=== PATIENT | female | born 1995 | race African-American/Black ===

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

== ENCOUNTER 2017-01-14 11:21 | Emergency (ER) | payer BC ==
[~2017-01-14] VITALS: Ht 157.5 cm; Wt 60.0 kg
[2017-01-14 11:22] VITALS: BP 123/68; PULSE 88; RESP 14; TEMP 98.4; O2SAT 100
[2017-01-14] MEDS ORDERED: IOHEXOL 350 MG/ML 10 ML VIAL (for RAD DIAG) IVCONTRAST ONE (11:22)
[2017-01-14] MEDS ORDERED: SODIUM CHLOR 0.9% 1000 ML INJ 1,000 ML IV SCH (13:49)
[2017-01-14] MEDS ORDERED: ONDANSETRON HCL 4 MG/2 ML VIAL IVP ONE (14:00)
--- NOTE | 2017-01-14 14:22 | PD ---
HPI Chief Complaint: GI Complaint Time Seen by Provider: 13:42 Travel History International Travel<30 days: No Contact w/Intl Traveler<30days: No Traveled to known affect area: No History of Present Illness HPI 22-year-old female that presents to the ED for evaluation of RLQ pain. Patient has had this for 1 week and a half. Thought it might be her menses, but has not come. LMP was normal last month. Unknown if . Mild vaginal discharge per patient. Pain is 10/10. No surgeries. No chest pain or SOB. yesterday pain became more severe, with nausea. Pain does not radiate. No BM or urinary symptoms. No allergies to meds. Hasn't taken anything for this. No other medical issues reported. PFSH Past Medical History Medical History: Denies Significant Hx Diminished Hearing: No Influenza Vaccination: No ?: Not LMP: 12/21/16 Ovarian Cysts: Yes Past Surgical History Surgical History: No Previous Surgery Social History Alcohol Use: No (denies) Tobacco Use: No (denies) Substance Use: No Allergies-Medications (Allergen,Severity, Reaction): Coded Allergies: No Known Allergies (Unverified , 01/14/17) Reported Meds & Prescriptions Reported Meds & Active Scripts Active Zofran (Ondansetron HCl) 4 Mg Tab 4 Mg PO Q6HR PRN Tramadol (Tramadol HCl) 50 Mg Tab 50 Mg PO Q6H PRN Diclofenac Sodium DR (Diclofenac Sodium) 75 Mg Tabdr 75 Mg PO BID PRN Doxycycline Hyclate 100 Mg Cap 100 Mg PO BID 10 Days Review of Systems Except as stated in HPI: all other systems reviewed are Neg Physical Exam Narrative GENERAL: SKIN: Warm and dry. HEAD: Atraumatic. Normocephalic. EYES: Pupils equal and round. No scleral icterus. No injection or drainage. ENT: No nasal bleeding or discharge. Mucous membranes pink and moist. Tongue is midline. No uvula deviation. NECK: Trachea midline. No JVD. CARDIOVASCULAR: Regular rate and rhythm. No murmurs, S3, S4. RESPIRATORY: No accessory muscle use. Clear to auscultation. Breath sounds equal bilaterally. GASTROINTESTINAL: Abdomen soft, RLQ pain with deep palpation, nondistended. Hepatic and splenic margins not palpable. Pelvic exam: Done with female nurse present. Patient does have yellowish white discharge coming from the vagina. No murmurs. No adnexal tenderness. No cervical tenderness MUSCULOSKELETAL: Extremities without clubbing, cyanosis, or edema. No obvious deformities. Full range of motion of the upper and lower extremities bilaterally. 2+ pulses bilaterally. NEUROLOGICAL: Awake and alert. No obvious cranial nerve deficits. Motor grossly within normal limits. Five out of 5 muscle strength in the arms and legs. Normal speech. PSYCHIATRIC: Appropriate mood and affect; insight and judgment normal. Data Data Last Documented VS Vital Signs Date Time Temp Pulse Resp B/P (MAP) Pulse Ox O2 Delivery O2 Flow Rate FiO2 01/14/17 19:41 01/14/17 13:57 18 01/14/17 11:22 98.4 88 100 Orders Orders Complete Blood Count With Diff (01/14/17 13:49) Comprehensive Metabolic Panel (01/14/17 13:49) Lipase (01/14/17 13:49) Urinalysis - C+S If Indicated (01/14/17 13:49) Ct Abd/Pel W Iv Contrast(Rout) (01/14/17 13:49) Iv Access Insert/Monitor (01/14/17 13:49) Ondansetron Inj (Zofran Inj) (01/14/17 14:00) Sodium Chlor 0.9% 1000 Ml Inj (Ns 1000 M (01/14/17 13:49) Ed Urine Pregnancytest Poc (01/14/17 13:49) Gc And Chlamydia Pcr (01/14/17 13:49) Wet Prep Profile (01/14/17 13:49) Morphine Inj (Morphine Inj) (01/14/17 14:30) Azithromycin Powd Pack (Zithromax Powd P (01/14/17 15:45) Ceftriaxone Inj (Rocephin Inj) (01/14/17 15:45) Lidocaine 1% Inj (50 Ml) (Xylocaine 1% I (01/14/17 15:45) Iohexol 350 Inj (Omnipaque 350 Inj) (01/14/17 11:22) Ketorolac Inj (Toradol Inj) (01/14/17 16:30) Us Pelvis Comp W Doppler (01/14/17 ) Morphine Inj (Morphine Inj) (01/14/17 17:45) Ondansetron Inj (Zofran Inj) (01/14/17 17:45) Labs Laboratory Tests Test 01/14/17 14:15 01/14/17 15:08 White Blood Count 5.9 TH/MM3 Red Blood Count 4.96 MIL/MM3 Hemoglobin 14.3 GM/DL Hematocrit 43.8 % Mean Corpuscular Volume 88.3 FL Mean Corpuscular Hemoglobin 28.8 PG Mean Corpuscular Hemoglobin Concent 32.6 % Red Cell Distribution Width 13.2 % Platelet Count 249 TH/MM3 Mean Platelet Volume 9.4 FL Neutrophils (%) (Auto) 79.5 % Lymphocytes (%) (Auto) 14.8 % Monocytes (%) (Auto) 3.5 % Eosinophils (%) (Auto) 1.2 % Basophils (%) (Auto) 1.0 % Neutrophils # (Auto) 4.7 TH/MM3 Lymphocytes # (Auto) 0.9 TH/MM3 Monocytes # (Auto) 0.2 TH/MM3 Eosinophils # (Auto) 0.1 TH/MM3 Basophils # (Auto) 0.1 TH/MM3 CBC Comment DIFF FINAL Differential Comment Urine Color YELLOW Urine Turbidity CLEAR Urine pH 6.0 Urine Specific [place] 1.032 Urine Protein TRACE mg/dL Urine Glucose (UA) 300 mg/dL Urine Ketones 80 mg/dL Urine Occult Blood NEG Urine Nitrite NEG Urine Bilirubin NEG Urine Urobilinogen LESS THAN 2.0 MG/DL Urine Leukocyte Esterase NEG Urine RBC 2 /hpf Urine WBC 1 /hpf Urine Squamous Epithelial Cells 3 /hpf Urine Mucus FEW /lpf Microscopic Urinalysis Comment CULT NOT INDICATED Blood Urea Nitrogen 12 MG/DL Creatinine 0.67 MG/DL Random Glucose 115 MG/DL Total Protein 7.5 GM/DL Albumin 3.7 GM/DL Calcium Level 8.5 MG/DL Alkaline Phosphatase 109 U/L Aspartate Amino Transf (AST/SGOT) 1061 U/L Alanine Aminotransferase (ALT/SGPT) 931 U/L Total Bilirubin 1.8 MG/DL Sodium Level 137 MEQ/L Potassium Level 3.8 MEQ/L Chloride Level 105 MEQ/L Carbon Dioxide Level 22.8 MEQ/L Anion Gap 9 MEQ/L Estimat Glomerular Filtration Rate 136 ML/MIN Lipase 163 U/L Clue Cells (Wet Prep) NONE SEEN Vaginal Trichomonas (Wet Prep) NONE SEEN Vaginal Yeast (Wet Prep) NONE SEEN Chlamydia trachomatis DNA (PCR) NOT DETECTED Neisseria gonorrhoeae DNA (PCR) NOT DETECTED [facility] Medical Decision Making Medical Screen Exam Complete: Yes Emergency Medical Condition: Yes Medical Record Reviewed: Yes Interpretation(s) CBC & BMP Diagram 01/14/17 14:15 Total Protein 7.5, Albumin 3.7, Calcium Level 8.5, Alkaline Phosphatase 109, Aspartate Amino Transf (AST/SGOT) 1061 H, Alanine Aminotransferase (ALT/SGPT) 931 H, Total Bilirubin 1.8 H UA negative Wet prep negative Last Impressions Abdomen/Pelvis CT 01/14/17 1349 Signed Impressions: Service Date/Time: Saturday, January 14, 2017 15:25 - CONCLUSION: 1. Normal appendix. 2. 2.6 x 2.0 cm left adnexal cystic lesion, likely ovarian in etiology. Generally, < 3 cm ovarian cysts do not require further imaging. If further imaging is clinically indicated, ultrasound examination may be performed for further evaluation. 3. Subcentimeter hypodense renal and hepatic lesions which are too small to fully characterize but statistically likely reflect cysts. Azam Nava MD US negative for acute disease other than ovarian cyst Differential Diagnosis Appendicitis versus ovarian pain versus UTI versus vaginitis versus abdominal pain versus kidney stone versus versus ectopic Narrative Course 22-year-old female that presents to the ED for evaluation of right lower quadrant pain. Patient was properly examined and was found to have signs and symptoms of unclear etiology. This time patient does appear to have right lower quadrant pain. Never had surgeries. Labs and imaging were ordered. Concern for appendicitis although less likely as patient has had symptoms for a week but she does have reproducible pain in the right lower quadrant with deep palpation. Labs and imaging show what appears to be elevated LFTs as well as some cystic lesions on the liver and kidney. Also cyst to the left ovary. No appendicitis noted. Wet prep was negative. At this time concerning for PID. Patient was given IM dose of ceftriaxone as well as azithromycin here and patient will be discharged home with prescription for doxycycline and diclofenac sodium. Told to have close follow-up with PCP. She was told the results of the labs and the need for further evaluation for the elevated LFTs. Possibly likely secondary to the vaginal infection. All relevant findings as well as physical exam were discussed with my attending Dr. Brito who recommends outpatient treatment and GI follow up. Patient was told this and agrees with plan. See ED for worsening symptoms. Follow with PCP. Before patient was discharged she was complaining of a lot more pain. My attending recommended ultrasound to make sure we are not missing a torsion. Ultrasound was negative for this. Patient was reassured. Patient was sent home with prescription for pain. Told to follow with PCP. See ED worsening symptoms. Diagnosis Primary Impression: Vaginitis Qualified Codes: N76.0 - Acute vaginitis Additional Impressions: PID (acute pelvic inflammatory disease) Elevated LFTs Patient Instructions: Narcotic given in the ED, General Instructions Additional Instructions: Take medications as prescribed. No sex for at least 2 weeks until completely better. Close follow with PCP. See ED for worsening symptoms. Med/Other Pt SpecificInfo: Prescription(s) given Scripts Ondansetron (Zofran) 4 Mg Tab 4 MG PO Q6HR Y for NAUSEA OR VOMITING, #15 TAB 0 Refills Prov: Anoop Loera MD 01/14/17 Tramadol (Tramadol) 50 Mg Tab 50 MG PO Q6H Y for PAIN, #10 TAB 0 Refills Prov: Anoop Loera MD 01/14/[address] (Diclofenac Sodium DR) 75 Mg Tabdr 75 MG PO BID Y for PAIN SCALE 1 TO 10, #20 TAB 0 Refills Prov: Amol Brito MD 01/14/17 Doxycycline Hyclate (Doxycycline Hyclate) 100 Mg Cap 100 MG PO BID for Infection for 10 Days, #20 CAP 0 Refills Prov: Amol Brito MD 01/14/17 Disposition: 01 DISCHARGE HOME Condition: Stable Cahz Cancino Jan 14, 2017 14:22
[2017-01-14] MEDS ORDERED: MORPHINE SULFATE 4 MG/ML INJ IV PUSH ONE ×2 (14:30→17:45)
[2017-01-14 14:47] LABS: AUTOMATED NEUTROPHIL # 4.7 TH/MM3 (1.8-7.7); BASOPHIL # 0.1 TH/MM3 (0-0.2); EOSINOPHIL # 0.1 TH/MM3 (0-0.4); EOSINOPHIL % 1.2 % (0.0-4.0); HEMATOCRIT 43.8 % (35.0-46.0); HEMO FLAGS DIFF FINAL; LYMPH % 14.8 % (9.0-44.0); LYMPHOCYTE # 0.9 TH/MM3 (1.0-4.8); MEAN CELL VOLUME 88.3 FL (80.0-100.0); MEAN CORPUSCULAR HEMOGLOBIN 28.8 PG (27.0-34.0); MEAN CORPUSCULAR HGB CONC 32.6 % (32.0-36.0); MONO % 3.5 % (0.0-8.0); NEUT % 79.5 % (16.0-70.0); PLATELET COUNT 249 TH/MM3 (150-450); RED BLOOD COUNT 4.96 MIL/MM3 (4.00-5.30); RED CELL DISTRIBUTION WIDTH 13.2 % (11.6-17.2); WHITE BLOOD COUNT 5.9 TH/MM3 (4.0-11.0)
[2017-01-14 15:02] LABS: BLOOD, URINE NEG (NEG); COMMENT (UR) CULT NOT INDICATED; CULTURE IF INDICATED CULT NOT INDICATED; GLUCOSE,URINE 300 mg/dL (NEG); KETONE, URINE 80 mg/dL (NEG); MUCUS URINE FEW /lpf (OCC); NITRITE,URINE NEG (NEG); SQUAMOUS EPITHELIAL CELL URINE 3 /hpf (0-5); URINE COLOR YELLOW (YELLW/STRAW)
[2017-01-14 15:22] LABS: ALKALINE PHOSPHATASE 109 U/L (45-117); ALT (GPT) 931 U/L (9-42); ANION GAP 9 MEQ/L (5-15); AST (GOT) 1061 U/L (16-38); BICARBONATE 22.8 MEQ/L (21.0-32.0); BLOOD UREA NITROGEN 12 MG/DL (7-18); CHLORIDE 105 MEQ/L (98-107); GLOMERULAR FILTRATION RATE 136 ML/MIN (>89); POTASSIUM 3.8 MEQ/L (3.5-5.1); SODIUM (NA) 137 MEQ/L (136-145); TOTAL BILIRUBIN ADULT 1.8 MG/DL (0.2-1.0)
[2017-01-14] MEDS ORDERED: LIDOCAINE HCL 1% 50 ML VIAL XX ONE (15:45)
[2017-01-14] MEDS ORDERED: AZITHROMYCIN PWD FOR SUSP 1 GM PACKET PO ONE (15:45)
[2017-01-14] MEDS ORDERED: cefTRIAXone 250 MG VIAL IM ONE (15:45)
--- NOTE | 2017-01-14 16:10 | RADRPT ---
EXAM DATE/TIME: 01/14/2017 15:25 [facility] COMPARISON: CT ABDOMEN & PELVIS W CONTRAST, September 15, 2016, 22:42. INDICATIONS : Right lower abdomen pain for eleven days,nausea,vomiting. IV CONTRAST: 82 cc Omnipaque 350 (iohexol) IV ORAL CONTRAST: No oral contrast ingested. RADIATION DOSE: 9.96 CTDIvol (mGy) MEDICAL HISTORY : Ovarian cyst SURGICAL HISTORY : None. ENCOUNTER: Initial ACUITY: 2 weeks PAIN SCALE: 10/10 LOCATION: Abdomen TECHNIQUE: Volumetric scanning of the abdomen and pelvis was performed. Using automated exposure control and adjustment of the mA and/or kV according to patient size, radiation dose was kept as low as reasonably achievable to obtain optimal diagnostic quality images. DICOM format image data is av ailable electronically for review and comparison. FINDINGS: LOWER LUNGS: Clear. LIVER: Stable subcentimeter hypodense cystic lesion in segment 6 of the liver which is too small to fully characterize. Gallbladder is mildly distended but otherwise unremarkable by CT. SPLEEN: Normal size without lesion. PANCREAS: Within normal limits. KIDNEYS: Subcentimeter hypodense cystic lesion in the superior pole of the right kidney which is too small to fully characterize. Kidneys otherwise demonstrate symmetrical enhancement without eviden ce for hydronephrosis or radiopaque renal calculi. ADRENAL GLANDS: Within normal limits. VASCULAR: There is no aortic aneurysm. BOWEL/MESENTERY: Appendix is visualized and normal in appearance. Bowel appears grossly unremarka ble without evidence for obstruction. No significant pneumatosis or free air. No drainable fluid augusto ection or free fluid. ABDOMINAL WALL: Very small fat containing periumbilical anterior abdominal wall hernia. RETROPERITONEUM: There is no lymphadenopathy. BLADDER: No wall thickening or mass. REPRODUCTIVE: There is a 2.6 x 2.0 cm cystic lesion in the left adnexa, likely ovarian in etiolog y. Uterus and adnexa are otherwise unremarkable for age. INGUINAL: There is no lymphadenopathy or hernia. MUSCULOSKELETAL: Within normal limits for patient age. CONCLUSION: 1. Normal appendix. 2. 2.6 x 2.0 cm left adnexal cystic lesion, likely ovarian in etiology. Generally, < 3 cm ovarian cys ts do not require further imaging. If further imaging is clinically indicated, ultrasound examination may be performed for further evaluation. 3. Subcentimeter hypodense renal and hepatic lesions which are too small to fully characterize but st atistically likely reflect cysts. Azam Nava MD on January 14, 2017 at 16:02 Board Certified Radiologist. This report was verified electronically.
[2017-01-14] MEDS ORDERED: KETOROLAC TROMETHAMINE 30 MG/ML (IVP) VIAL IV PUSH ONE (16:30)
[2017-01-14] MEDS ORDERED: DICL75TA PO (16:31)
[2017-01-14] MEDS ORDERED: TRAM50TA PO ×2 (16:31→19:24)
[2017-01-14] MEDS ORDERED: DOXY100C PO (16:31)
[2017-01-14] MEDS ORDERED: ONDANSETRON HCL 4 MG/2 ML VIAL IV PUSH ONE (17:45)
[2017-01-14 17:54] LABS: CHLAMYDIA PCR NOT DETECTED (NOT DETECT); NEISSERIA PCR NOT DETECTED (NOT DETECT)
--- NOTE | 2017-01-14 19:11 | RADRPT ---
EXAM DATE/TIME: 01/14/2017 18:10 [facility] COMPARISON: No previous studies available for comparison. INDICATIONS : Pelvic pain. MEDICAL HISTORY : Ovarian cysts. SURGICAL HISTORY : None. ENCOUNTER: Initial ACUITY: 2 weeks PAIN SCORE: 5/10 LOCATION: Bilateral pelvis MEASUREMENTS: UTERUS: 6.0 x 4.7 x 3.4 cm ENDOMETRIAL STRIPE: 8 mm RIGHT OVARY: 2.9 x 2.4 x 1.4 cm LEFT OVARY: 4.1 x 4.0 x 3.1 cm FINDINGS: The uterus is normal in size, and shape for the patient's age. No focal masses are identified. The en dometrial stripe is normal. The right ovary appears normal. There is a left ovarian cyst which measur es 3.3 cm in diameter. Normal Doppler flow is present bilaterally. No adnexal masses are identified. No free fluid is identified. CONCLUSION: Left ovarian cyst otherwise unremarkable Surjit Luciano MD on January 14, 2017 at 19:08 Board Certified Radiologist. This report was verified electronically.
[2017-01-14] MEDS ORDERED: ZOFR4TAB PO (19:24)
== END 2017-01-14 19:41 | disposition home or self-care (01) ==
LOC: NEPD 11:21
DX: N76.0 Acute vaginitis (principal); N73.9 Female pelvic inflammatory disease, unspecified; R79.89 Other specified abnormal findings of blood chemistry; R11.0 Nausea; Z87.42 Personal history of other diseases of the female genital tract
CPT/HCPCS: 74177; 76856; 80053; 81001; 83690; 84703; 85025; 87210; 87491; 87591; 93975; 96361; 96372; 96374; 96375; 96376; 99285; J0696; J1885; J2270; J2405; J7030; Q9967

== ENCOUNTER 2017-01-21 14:34 | Emergency (ER) | payer BC ==
[~2017-01-21] VITALS: Ht 157.5 cm; Wt 60.0 kg
[~2017-01-21 14:34] MED LIST changes: -BACT800T5 PO; +DICL75TA PO; -DICY10 PO; +DOXY100C PO; +TRAM50TA PO; +ZOFR4TAB PO; -birth control PO
[2017-01-21 14:36] VITALS: BP 115/77; PULSE 62; RESP 18; TEMP 98.8; O2SAT 99
[2017-01-21] MEDS ORDERED: SODIUM CHLORIDE 0.9% FLUSH 10 ML FLUSH IV FLUSH PRN (16:15)
--- NOTE | 2017-01-21 16:54 | PD ---
HPI Chief Complaint: Abdominal Pain Time Seen by Provider: 15:47 Travel History International Travel<30 days: No Contact w/Intl Traveler<30days: No History of Present Illness HPI The patient's 22 years old. She complains of abdominal pain for one week. She had similar pain a week ago and was seen here and at that time underwent a pelvic ultrasound and a CT of the abdomen and pelvis. There is a 2.7 cm left ovarian cyst. She also had an elevation of LFTs with an AST of 1050. She reports persistent pain primarily on the right side. She has nausea. She vomited once or twice last week. She was discharged with nausea medication which she reports has been helpful. She denies vaginal bleeding or discharge. Patient was treated with doxycycline for PID. She was also treated with Rocephin and azithromycin. PFSH Past Medical History Diminished Hearing: No ?: Not LMP: 01/15/17 Ovarian Cysts: Yes Social History Alcohol Use: No (denies) Tobacco Use: No (denies) Substance Use: No Allergies-Medications (Allergen,Severity, Reaction): Coded Allergies: No Known Allergies (Unverified , 01/21/17) Reported Meds & Prescriptions Reported Meds & Active Scripts Active Zofran (Ondansetron HCl) 4 Mg Tab 4 Mg PO Q6HR PRN Tramadol (Tramadol HCl) 50 Mg Tab 50 Mg PO Q6H PRN Diclofenac Sodium DR (Diclofenac Sodium) 75 Mg Tabdr 75 Mg PO BID PRN Doxycycline Hyclate 100 Mg Cap 100 Mg PO BID 10 Days Review of Systems Except as stated in HPI: all other systems reviewed are Neg General / Constitutional: No: Fever Gastrointestinal: Positive: Nausea, Vomiting, Abdominal Pain Genitourinary: No: Urgency, Frequency, Dysuria Physical Exam Narrative GENERAL: 22-year-old female no acute distress pleasant SKIN: Focused skin assessment warm/dry. HEAD: Atraumatic. Normocephalic. EYES: Pupils equal and round. No scleral icterus. No injection or drainage. ENT: No nasal bleeding or discharge. Mucous membranes pink and moist. NECK: Trachea midline. No JVD. CARDIOVASCULAR: Regular rate and rhythm. No murmur appreciated. RESPIRATORY: No accessory muscle use. Clear to auscultation. Breath sounds equal bilaterally. GASTROINTESTINAL: Soft. Minimal tenderness in the right side. MUSCULOSKELETAL: No obvious deformities. No clubbing. No cyanosis. No edema. NEUROLOGICAL: Awake and alert. No obvious cranial nerve deficits. Motor grossly within normal limits. Normal speech. PSYCHIATRIC: Appropriate mood and affect; insight and judgment normal. Data Data Last Documented VS Vital Signs Date Time Temp Pulse Resp B/P (MAP) Pulse Ox O2 Delivery O2 Flow Rate FiO2 01/21/17 19:36 76 16 61/76 (71) 97 01/21/17 14:36 98.8 Room Air Vital signs reviewed Orders Orders Urinalysis - C+S If Indicated (01/21/17 15:56) Ed Urine Pregnancytest Poc (01/21/17 15:56) Complete Blood Count With Diff (01/21/17 16:07) Comprehensive Metabolic Panel (01/21/17 16:07) Lipase (01/21/17 16:07) Us Abdomen Gallbladder (01/21/17 ) Iv Access Insert/Monitor (01/21/17 16:07) Ecg Monitoring (01/21/17 16:07) Oximetry (01/21/17 16:07) Sodium Chloride 0.9% Flush (Ns Flush) (01/21/17 16:15) Ed Discharge Order (01/21/17 19:03) Labs Laboratory Tests Test 01/21/17 17:20 White Blood Count 6.7 TH/MM3 Red Blood Count 4.55 MIL/MM3 Hemoglobin 13.5 GM/DL Hematocrit 40.7 % Mean Corpuscular Volume 89.3 FL Mean Corpuscular Hemoglobin 29.6 PG Mean Corpuscular Hemoglobin Concent 33.1 % Red Cell Distribution Width 13.6 % Platelet Count 222 TH/MM3 Mean Platelet Volume 9.3 FL Neutrophils (%) (Auto) 39.6 % Lymphocytes (%) (Auto) 37.7 % Monocytes (%) (Auto) 7.9 % Eosinophils (%) (Auto) 13.9 % Basophils (%) (Auto) 0.9 % Neutrophils # (Auto) 2.7 TH/MM3 Lymphocytes # (Auto) 2.5 TH/MM3 Monocytes # (Auto) 0.5 TH/MM3 Eosinophils # (Auto) 0.9 TH/MM3 Basophils # (Auto) 0.1 TH/MM3 CBC Comment DIFF FINAL Differential Comment Urine Color YELLOW Urine Turbidity HAZY Urine pH 7.5 Urine Specific [place] 1.015 Urine Protein NEG mg/dL Urine Glucose (UA) NEG mg/dL Urine Ketones NEG mg/dL Urine Occult Blood NEG Urine Nitrite NEG Urine Bilirubin NEG Urine Urobilinogen LESS THAN 2.0 MG/DL Urine Leukocyte Esterase NEG Urine RBC 5 /hpf Urine WBC 3 /hpf Urine Squamous Epithelial Cells 3 /hpf Urine Mucus FEW /lpf Microscopic Urinalysis Comment CULT NOT INDICATED Blood Urea Nitrogen 8 MG/DL Creatinine 0.68 MG/DL Random Glucose 79 MG/DL Total Protein 7.1 GM/DL Albumin 3.5 GM/DL Calcium Level 8.6 MG/DL Alkaline Phosphatase 93 U/L Aspartate Amino Transf (AST/SGOT) 106 U/L Alanine Aminotransferase (ALT/SGPT) 358 U/L Total Bilirubin 0.6 MG/DL Sodium Level 140 MEQ/L Potassium Level 4.2 MEQ/L Chloride Level 105 MEQ/L Carbon Dioxide Level 29.0 MEQ/L Anion Gap 6 MEQ/L Estimat Glomerular Filtration Rate 133 ML/MIN Lipase 105 U/L MDM Medical Decision Making Medical Screen Exam Complete: Yes Emergency Medical Condition: Yes Medical Record Reviewed: Yes Differential Diagnosis Constipation, Gastritis, Acute Cholecystitis, Biliary Colic, Pancreatitis, KNOTT , Hepatitis, Bowel Obstruction, Cystitis, Mesenteric Ischemia, AAA, Appendicitis , Renal Stone/Hydronephrosis, GERD, perforated viscous Narrative Course Workup initiated. CBC CMP and lipase urinalysis and right upper quadrant ultrasound ordered. Patient transferred to adult medical bed for continued care and disposition. Fabio Hagan MD Jan 21, 2017 16:54
--- NOTE | 2017-01-21 17:12 | RADRPT ---
EXAM DATE/TIME: 01/21/2017 16:36 [facility] COMPARISON: No previous studies available for comparison. INDICATIONS : Right upper quadrant pain. MEDICAL HISTORY : Ovarian cysts. Alcohol use. SURGICAL HISTORY : None. ENCOUNTER: Initial ACUITY: 4-6 days PAIN SCORE: 4/10 LOCATION: Right upper quadrant MEASUREMENTS: LIVER: 14.2 cm length COMMON DUCT: 3 mm RIGHT KIDNEY: 10.0 x 4.4 x 4.4 cm FINDINGS: LIVER: Normal echotexture without focal lesion or ductal dilatation. Blood flow the main portal vein is with in normal limits. COMMON DUCT: No intraluminal mass or stone visualized. GALLBLADDER: Contains no stones, demonstrates no wall thickening or pericholecystic fluid. There is a non-shadowi ng and nonmobile echogenic structure along the gallbladder wall with a polypoid appearance measuring up to 5 mm. No internal color flow is visualized. PANCREAS: The visualized portions are within normal limits. RIGHT KIDNEY: No evidence of hydronephrosis, stone, or mass. CONCLUSION: 1. No acute finding is identified to explain the right upper quadrant pain. 2. There is a 5 mm gallbladder polyp. Chandan Castillo MD on January 21, 2017 at 17:04 Board Certified Radiologist. This report was verified electronically.
[2017-01-21 17:31] VITALS: BP 115/68; PULSE 67; O2SAT 100
[2017-01-21 17:42] LABS: AUTOMATED NEUTROPHIL # 2.7 TH/MM3 (1.8-7.7); BASOPHIL # 0.1 TH/MM3 (0-0.2); BASOPHIL % 0.9 % (0.0-2.0); BLOOD, URINE NEG (NEG); COMMENT (UR) CULT NOT INDICATED; CULTURE IF INDICATED CULT NOT INDICATED; EOSINOPHIL # 0.9 TH/MM3 (0-0.4); EOSINOPHIL % 13.9 % (0.0-4.0); GLUCOSE,URINE NEG (NEG); HEMATOCRIT 40.7 % (35.0-46.0); HEMO FLAGS DIFF FINAL; KETONE, URINE NEG (NEG); LYMPH % 37.7 % (9.0-44.0); LYMPHOCYTE # 2.5 TH/MM3 (1.0-4.8); MEAN CELL VOLUME 89.3 FL (80.0-100.0); MEAN CORPUSCULAR HEMOGLOBIN 29.6 PG (27.0-34.0); MEAN CORPUSCULAR HGB CONC 33.1 % (32.0-36.0); MONO % 7.9 % (0.0-8.0); MUCUS URINE FEW /lpf (OCC); NEUT % 39.6 % (16.0-70.0); NITRITE,URINE NEG (NEG); PH, URINE 7.5 (5.0-8.5); PLATELET COUNT 222 TH/MM3 (150-450); RED BLOOD COUNT 4.55 MIL/MM3 (4.00-5.30); RED CELL DISTRIBUTION WIDTH 13.6 % (11.6-17.2); SQUAMOUS EPITHELIAL CELL URINE 3 /hpf (0-5); URINE COLOR YELLOW (YELLW/STRAW); WHITE BLOOD COUNT 6.7 TH/MM3 (4.0-11.0)
--- NOTE | 2017-01-21 18:11 | PD ---
HPI Chief Complaint: Abdominal Pain Time Seen by Provider: 17:36 Travel History International Travel<30 days: No Contact w/Intl Traveler<30days: No Traveled to known affect area: No History of Present Illness HPI 22-year-old female came to the emergency room with history of diffuse bilateral lower abdominal pain that started for past 3 weeks. Patient actually was in the emergency room one week ago for similar abdominal pain. At that time there was blood test and CAT scan done which showed significantly elevated liver enzymes and some incidental finding like a left ovarian cyst. Patient was discharged home. She says that after she went home that night she vomited few times and then vomiting subsided. However the abdominal pain continued. She came here because of the abdominal pain. Vital signs are stable. She had an ultrasound of her right upper quadrant and blood test done prior to her coming into the room. Report Showed a 3 Mm Gallbladder Polyp. No History of Current Vomiting or Diarrhea. She Is Otherwise a Healthy Person. Patient Says She Drinks Occasionally Once in 2-3 Weeks. No History of IV Drug Abuse. [facility] Past Medical History Narrative Medical List of her past medical, surgical, social and family history is reviewed from the nursing note. Medical History: Denies Significant Hx Diminished Hearing: No Immunizations Current: Yes ?: Not LMP: 01/15/17 Ovarian Cysts: Yes Past Surgical History Surgical History: No Previous Surgery Social History Alcohol Use: No (denies) Tobacco Use: No (denies) Substance Use: No Allergies-Medications (Allergen,Severity, Reaction): Coded Allergies: No Known Allergies (Unverified , 01/21/17) Comments No known drug allergies. Reported Meds & Prescriptions Reported Meds & Active Scripts Active Zofran (Ondansetron HCl) 4 Mg Tab 4 Mg PO Q6HR PRN Tramadol (Tramadol HCl) 50 Mg Tab 50 Mg PO Q6H PRN Diclofenac Sodium DR (Diclofenac Sodium) 75 Mg Tabdr 75 Mg PO BID PRN Doxycycline Hyclate 100 Mg Cap 100 Mg PO BID 10 Days Narrative Medication List of her home medications reviewed from the nursing note. Review of Systems Except as stated in HPI: all other systems reviewed are Neg Gastrointestinal: Positive: Abdominal Pain Physical Exam Narrative GENERAL: Awake, alert, no obvious distress SKIN: Focused skin assessment warm/dry. HEAD: Atraumatic. Normocephalic. EYES: Pupils equal and round. No scleral icterus. No injection or drainage. ENT: No nasal bleeding or discharge. Mucous membranes pink and moist. NECK: Trachea midline. No JVD. CARDIOVASCULAR: Regular rate and rhythm. No murmur appreciated. RESPIRATORY: No accessory muscle use. Clear to auscultation. Breath sounds equal bilaterally. GASTROINTESTINAL: Abdomen soft, non-tender, nondistended. Hepatic and splenic margins not palpable. MUSCULOSKELETAL: No obvious deformities. No clubbing. No cyanosis. No edema. NEUROLOGICAL: Awake and alert. No obvious cranial nerve deficits. Motor grossly within normal limits. Normal speech. PSYCHIATRIC: Appropriate mood and affect; insight and judgment normal. Data Data Last Documented VS Orders Orders Urinalysis - C+S If Indicated (01/21/17 15:56) Ed Urine Pregnancytest Poc (01/21/17 15:56) Complete Blood Count With Diff (01/21/17 16:07) Comprehensive Metabolic Panel (01/21/17 16:07) Lipase (01/21/17 16:07) Us Abdomen Gallbladder (01/21/17 ) Iv Access Insert/Monitor (01/21/17 16:07) Ecg Monitoring (01/21/17 16:07) Oximetry (01/21/17 16:07) Sodium Chloride 0.9% Flush (Ns Flush) (01/21/17 16:15) Ed Discharge Order (01/21/17 19:03) Labs Laboratory Tests Test 01/21/17 17:20 White Blood Count 6.7 TH/MM3 Red Blood Count 4.55 MIL/MM3 Hemoglobin 13.5 GM/DL Hematocrit 40.7 % Mean Corpuscular Volume 89.3 FL Mean Corpuscular Hemoglobin 29.6 PG Mean Corpuscular Hemoglobin Concent 33.1 % Red Cell Distribution Width 13.6 % Platelet Count 222 TH/MM3 Mean Platelet Volume 9.3 FL Neutrophils (%) (Auto) 39.6 % Lymphocytes (%) (Auto) 37.7 % Monocytes (%) (Auto) 7.9 % Eosinophils (%) (Auto) 13.9 % Basophils (%) (Auto) 0.9 % Neutrophils # (Auto) 2.7 TH/MM3 Lymphocytes # (Auto) 2.5 TH/MM3 Monocytes # (Auto) 0.5 TH/MM3 Eosinophils # (Auto) 0.9 TH/MM3 Basophils # (Auto) 0.1 TH/MM3 CBC Comment DIFF FINAL Differential Comment Urine Color YELLOW Urine Turbidity HAZY Urine pH 7.5 Urine Specific [place] 1.015 Urine Protein NEG mg/dL Urine Glucose (UA) NEG mg/dL Urine Ketones NEG mg/dL Urine Occult Blood NEG Urine Nitrite NEG Urine Bilirubin NEG Urine Urobilinogen LESS THAN 2.0 MG/DL Urine Leukocyte Esterase NEG Urine RBC 5 /hpf Urine WBC 3 /hpf Urine Squamous Epithelial Cells 3 /hpf Urine Mucus FEW /lpf Microscopic Urinalysis Comment CULT NOT INDICATED Blood Urea Nitrogen 8 MG/DL Creatinine 0.68 MG/DL Random Glucose 79 MG/DL Total Protein 7.1 GM/DL Albumin 3.5 GM/DL Calcium Level 8.6 MG/DL Alkaline Phosphatase 93 U/L Aspartate Amino Transf (AST/SGOT) 106 U/L Alanine Aminotransferase (ALT/SGPT) 358 U/L Total Bilirubin 0.6 MG/DL Sodium Level 140 MEQ/L Potassium Level 4.2 MEQ/L Chloride Level 105 MEQ/L Carbon Dioxide Level 29.0 MEQ/L Anion Gap 6 MEQ/L Estimat Glomerular Filtration Rate 133 ML/MIN Lipase 105 U/L [facility] Medical Decision Making Medical Screen Exam Complete: Yes Emergency Medical Condition: Yes Medical Record Reviewed: Yes Differential Diagnosis Hepatitis, abdominal pain NOS Narrative Course 7 PM blood test results of back and her liver enzymes has significantly improved even though they're still slightly elevated. I explained to the patient at length about her previous visits CAT scan and ultrasound results along with the elevated liver function. I explained to her today's blood test results as well as the ultrasound report. I've answered all her questions to the best of my ability. I have explained to her that at this point there is nothing emergently that needs to be done. I'll discharge her home. I have advised her to take NSAID instead of Tylenol given her elevated liver function and she understands. Procedures EKG Prior to Arrival: No Diagnosis Primary Impression: Gallbladder polyp Additional Impressions: Elevated liver enzymes Ovarian cyst Qualified Codes: N83.202 - Unspecified ovarian cyst, left side Abdominal pain Qualified Codes: R10.9 - Unspecified abdominal pain Referrals: Primary Care Physician Additional Instructions: Please follow-up with your [employer] who should repeat a pelvic ultrasound in 3 months. You should also follow-up with your primary care in 1-2 weeks to repeat the liver function test. The ER if the condition worsens or any other new concerns. Do not take Tylenol. Take Motrin/ibuprofen/Advil for pain relief. The fluid. Do not eat any fatty food. A primary care should refer you to a GI specialist to evaluate if the liver function test/liver enzymes continues to be abnormal. Med/Other Pt SpecificInfo: No Change to Meds Disposition: 01 DISCHARGE HOME Condition: Stable Adore Park MD Jan 21, 2017 18:11
[2017-01-21 18:16] LABS: ALKALINE PHOSPHATASE 93 U/L (45-117); ALT (GPT) 358 U/L (9-42); TOTAL BILIRUBIN ADULT 0.6 MG/DL (0.2-1.0)
[2017-01-21 18:23] LABS: ANION GAP 6 MEQ/L (5-15); AST (GOT) 106 U/L (16-38); BLOOD UREA NITROGEN 8 MG/DL (7-18); CHLORIDE 105 MEQ/L (98-107); GLOMERULAR FILTRATION RATE 133 ML/MIN (>89); POTASSIUM 4.2 MEQ/L (3.5-5.1); SODIUM (NA) 140 MEQ/L (136-145)
[2017-01-21 19:36] VITALS: BP 61/76
== END 2017-01-21 20:23 | disposition home or self-care (01) ==
LOC: NEPA 14:34 → NEPC 20:23
DX: K82.4 Cholesterolosis of gallbladder (principal); R74.8 Abnormal levels of other serum enzymes; N83.202 Unspecified ovarian cyst, left side
CPT/HCPCS: 76705; 80053; 81001; 83690; 84703; 85025; 99284

== ENCOUNTER 2017-02-17 22:28 | Emergency (ER) | payer BC ==
[~2017-02-17] VITALS: Ht 157.5 cm; Wt 60.0 kg
[2017-02-17 22:31] VITALS: BP 127/74; PULSE 98; RESP 16; TEMP 99; O2SAT 100
[2017-02-18] MEDS ORDERED: ONDANSETRON HCL 4 MG/2 ML VIAL IVP ONE (00:30)
[2017-02-18] MEDS ORDERED: SODIUM CHLORIDE 0.9% FLUSH 10 ML FLUSH IV FLUSH PRN (00:30)
[2017-02-18 00:54] VITALS: BP 126/78; PULSE 87; RESP 18; O2SAT 100
--- NOTE | 2017-02-18 00:56 | PD ---
HPI Chief Complaint: Abdominal Pain Time Seen by Provider: 00:20 Travel History International Travel<30 days: No Contact w/Intl Traveler<30days: No Traveled to known affect area: No History of Present Illness HPI Patient comes in complaining of cramping lower abdominal pain ongoing for 2 weeks. Patient denies anything making it better or worse. Denies any nausea, vomiting, dysuria, change in bowel or bladder, vaginal discharge, back pain, fevers, radiation of pain, chest pain, or shortness of breath. Patient is uncertain if she is or not. [facility] Past Medical History Medical History: Denies Significant Hx Diminished Hearing: No Immunizations Current: Yes Tetanus Vaccination: < 5 Years ?: Unknown LMP: 01/15/2017 Ovarian Cysts: Yes Past Surgical History Surgical History: No Previous Surgery Social History Alcohol Use: No (denies) Tobacco Use: No (denies) Substance Use: No Allergies-Medications (Allergen,Severity, Reaction): Coded Allergies: No Known Allergies (Unverified , 01/21/17) Reported Meds & Prescriptions Reported Meds & Active Scripts Active No Active Prescriptions or Reported Medications Review of Systems Except as stated in HPI: all other systems reviewed are Neg Physical Exam Narrative GENERAL: Well-developed, overly nourished, in no acute distress, and non-ill appearing. SKIN: Focused skin assessment warm and dry. HEAD: Atraumatic. Normocephalic. EYES: Pupils equal and round. EOMI. No scleral icterus. No injection or drainage. ENT: No nasal bleeding or discharge. Mucous membranes pink and moist. NECK: Trachea midline. Supple. No nuclear rigidity. CARDIOVASCULAR: Regular rate and rhythm. No murmur appreciated. RESPIRATORY: No accessory muscle use. No respiratory distress. Clear to auscultation. Breath sounds equal bilaterally. GASTROINTESTINAL: Abdomen soft, non-tender, nondistended, and no guarding. Hepatic and splenic margins not palpable. Normal bowel sounds 4. No pulsatile mass. MUSCULOSKELETAL: No obvious deformities. No clubbing. No cyanosis. No edema. Full range of motion. NEUROLOGICAL: Awake and alert. No obvious cranial nerve deficits. Motor grossly within normal limits. Normal speech. PSYCHIATRIC: Appropriate mood and affect; insight and judgment normal. Data Data Last Documented VS Vital Signs Date Time Temp Pulse Resp B/P (MAP) Pulse Ox O2 Delivery O2 Flow Rate FiO2 02/18/17 03:57 18 02/18/17 00:54 87 100 Room Air 02/17/17 22:31 99.0 Orders Orders Complete Blood Count With Diff (02/18/17 00:24) Comprehensive Metabolic Panel (02/18/17 00:24) Lipase (02/18/17 00:24) Urinalysis - C+S If Indicated (02/18/17 00:24) Iv Access Insert/Monitor (02/18/17 00:24) Ecg Monitoring (02/18/17 00:24) Oximetry (02/18/17 00:24) Ondansetron Inj (Zofran Inj) (02/18/17 00:30) Sodium Chloride 0.9% Flush (Ns Flush) (02/18/17 00:30) Ed Urine Pregnancytest Poc (02/18/17 00:24) Beta Hcg (Quant/Titer) (02/18/17 01:14) Complete Rh (02/18/17 01:14) Us Pelvis (Ques Pr/Ect)W Trans (02/18/17 ) Ed Discharge Order (02/18/17 03:37) Labs Laboratory Tests Test 02/18/17 00:30 02/18/17 01:00 Urine Color YELLOW Urine Turbidity CLEAR Urine pH 6.0 Urine Specific [place] 1.028 Urine Protein TRACE mg/dL Urine Glucose (UA) NEG mg/dL Urine Ketones NEG mg/dL Urine Occult Blood NEG Urine Nitrite NEG Urine Bilirubin NEG Urine Urobilinogen LESS THAN 2.0 MG/DL Urine Leukocyte Esterase NEG Urine RBC LESS THAN 1 /hpf Urine WBC 1 /hpf Urine Squamous Epithelial Cells 8 /hpf Urine Bacteria RARE /hpf Urine Mucus MOD /lpf Microscopic Urinalysis Comment CULT NOT INDICATED White Blood Count 8.2 TH/MM3 Red Blood Count 4.88 MIL/MM3 Hemoglobin 14.2 GM/DL Hematocrit 42.5 % Mean Corpuscular Volume 87.1 FL Mean Corpuscular Hemoglobin 29.0 PG Mean Corpuscular Hemoglobin Concent 33.3 % Red Cell Distribution Width 12.8 % Platelet Count 268 TH/MM3 Mean Platelet Volume 8.4 FL Neutrophils (%) (Auto) 50.6 % Lymphocytes (%) (Auto) 36.6 % Monocytes (%) (Auto) 6.1 % Eosinophils (%) (Auto) 5.4 % Basophils (%) (Auto) 1.3 % Neutrophils # (Auto) 4.1 TH/MM3 Lymphocytes # (Auto) 3.0 TH/MM3 Monocytes # (Auto) 0.5 TH/MM3 Eosinophils # (Auto) 0.4 TH/MM3 Basophils # (Auto) 0.1 TH/MM3 CBC Comment DIFF FINAL Differential Comment Blood Urea Nitrogen 10 MG/DL Creatinine 0.56 MG/DL Random Glucose 74 MG/DL Total Protein 7.7 GM/DL Albumin 3.9 GM/DL Calcium Level 8.6 MG/DL Alkaline Phosphatase 80 U/L Aspartate Amino Transf (AST/SGOT) 37 U/L Alanine Aminotransferase (ALT/SGPT) 48 U/L Total Bilirubin 0.7 MG/DL Sodium Level 138 MEQ/L Potassium Level 3.7 MEQ/L Chloride Level 105 MEQ/L Carbon Dioxide Level 23.5 MEQ/L Anion Gap 10 MEQ/L Estimat Glomerular Filtration Rate 167 ML/MIN Lipase 140 U/L Human Chorionic Gonadotropin, Quant 3797 MIU/ML MDM Medical Decision Making Medical Screen Exam Complete: Yes Emergency Medical Condition: Yes Differential Diagnosis Chronic abdominal pain, UTI, , ectopic , ovarian cyst, metabolic disturbance, other Narrative Course Patient presented with lower abdominal pain and the test was positive. Ultrasound was performed and there is no obvious evidence of a uterine . However the quantitative B-HcG was low and last menstrual cycle was recent and therefore eludes to an early not able to be seen by sonography. There is no evidence to suggest obvious ectopic or ruptured ectopic , nor cervicitis, PID or torsion at this time. There was no evidence to support colitis, diverticulitis, obstruction, abdominal or femoral herniation, volvulus, early appendicitis, or hernial incarceration or strangulation at this time. Patient is stable and no clinical evidence of anemia. There is no RH incompatibility. The patient therefore can be released at this time with acute follow up. Patient was warned on the possibility of an ectopic and to return IMMEDIATELY if the pain worsened and/or bleeding , felt faint or passed out. The patient was instructed to follow up with OB within 2 days, and was given contact information. She was given ectopic warnings and warnings to return if felt faint or passed out, fever, worsening pain, inability to tolerate fluids, or as needed. The patient agreed with plan and stated will follow up as instructed. Patient in no obvious distress upon re-evaluation. All pertinent laboratory/ Radiology result(s) discussed with patient. Any questions/concerns in reference to patient diagnosis/condition discussed and clarified prior to patient's discharge. Reinforced sheer importance of close follow up with an OB. Instructed patient to return to ED immediately, if symptoms return/worsen. Patient showed understanding of above instructions. Further instructions and recommendations were detailed in discharge paperwork. Patient ambulated without difficulty out of ED at discharge. Diagnosis Primary Impression: Early stage of [facility] Patient Instructions: Abdominal Pain in (ED), General Instructions Additional Instructions: Follow-up with your OB in 2 days or return here in 2 days for recheck. Start taking [id number] vitamins. Follow instructions on the packaging. Return to the emergency department if symptoms get worse. Scripts No Active Prescriptions or Reported Meds Disposition: 01 DISCHARGE HOME Condition: Stable Geoff Perkins Feb 18, 2017 00:56
[2017-02-18 01:18] LABS: AUTOMATED NEUTROPHIL # 4.1 TH/MM3 (1.8-7.7); BASOPHIL # 0.1 TH/MM3 (0-0.2); BASOPHIL % 1.3 % (0.0-2.0); EOSINOPHIL # 0.4 TH/MM3 (0-0.4); EOSINOPHIL % 5.4 % (0.0-4.0); HEMATOCRIT 42.5 % (35.0-46.0); HEMO FLAGS DIFF FINAL; LYMPH % 36.6 % (9.0-44.0); MEAN CELL VOLUME 87.1 FL (80.0-100.0); MEAN CORPUSCULAR HGB CONC 33.3 % (32.0-36.0); MONO % 6.1 % (0.0-8.0); NEUT % 50.6 % (16.0-70.0); PLATELET COUNT 268 TH/MM3 (150-450); RED BLOOD COUNT 4.88 MIL/MM3 (4.00-5.30); RED CELL DISTRIBUTION WIDTH 12.8 % (11.6-17.2); WHITE BLOOD COUNT 8.2 TH/MM3 (4.0-11.0)
[2017-02-18 01:20] LABS: BACTERIA, URINE RARE /hpf; BLOOD, URINE NEG (NEG); COMMENT (UR) CULT NOT INDICATED; CULTURE IF INDICATED CULT NOT INDICATED; GLUCOSE,URINE NEG (NEG); KETONE, URINE NEG (NEG); MUCUS URINE MOD /lpf (OCC); NITRITE,URINE NEG (NEG); SQUAMOUS EPITHELIAL CELL URINE 8 /hpf (0-5); URINE COLOR YELLOW (YELLW/STRAW)
[2017-02-18 01:36] LABS: ALKALINE PHOSPHATASE 80 U/L (45-117); TOTAL BILIRUBIN ADULT 0.7 MG/DL (0.2-1.0)
[2017-02-18 01:38] LABS: ALT (GPT) 48 U/L (9-42); ANION GAP 10 MEQ/L (5-15); AST (GOT) 37 U/L (16-38); BICARBONATE 23.5 MEQ/L (21.0-32.0); BLOOD UREA NITROGEN 10 MG/DL (7-18); CHLORIDE 105 MEQ/L (98-107); GLOMERULAR FILTRATION RATE 167 ML/MIN (>89); POTASSIUM 3.7 MEQ/L (3.5-5.1); SODIUM (NA) 138 MEQ/L (136-145)
[2017-02-18 02:43] LABS: BETA HCG QUANT 3797 MIU/ML (0-5)
--- NOTE | 2017-02-18 03:30 | RADRPT ---
EXAM DATE/TIME: 02/18/2017 02:34 [facility] COMPARISON: No previous studies available for comparison. INDICATIONS : Pelvic cramping. LAB(S): Beta-hC MEDICAL HISTORY : . Ovarian cysts. SURGICAL HISTORY : None. ENCOUNTER: Initial ACUITY: 2 weeks PAIN SCORE: 8/10 LOCATION: Bilateral pelvis MEASUREMENTS: UTERUS: 9.3 x 5.1 x 4.7 cm ENDOMETRIAL STRIPE: 13 mm RIGHT OVARY: 2.3 x 2.1 x 2.4 cm LEFT OVARY: 3.1 x 3.1 x 2.2 cm FREE FLUID: Yes posterior cul de sac FINDINGS: UTERUS: The myometrium has homogeneous echotexture without mass.On the transabdominal study , within the endo metrial lining there is an 8 x 4 x 7 mm hypoechoic area could be an early gestational sac. On the tra nsvaginal study the oval collection is more defined measuring 5 x 8 x 5 mm. No definite yolk sac is identified. RIGHT OVARY: Ovary contains no mass or significant cystic lesion. LEFT OVARY: Ovary contains no mass or significant cystic lesion. MISCELLANEOUS: No free fluid. CONCLUSION: Small oval collection within endometrial lining likely early gestational sac. No definite yolk sac is identified. Ramon Denney MD on February 18, 2017 at 3:26 Board Certified Radiologist. This report was verified electronically.
== END 2017-02-18 03:57 | disposition home or self-care (01) ==
LOC: NEPD 22:28
DX: O26.891 Other specified pregnancy related conditions, first trimester (principal); R10.30 Lower abdominal pain, unspecified; Z3A.01 Less than 8 weeks gestation of pregnancy
CPT/HCPCS: 76700; 76817; 80053; 81001; 83690; 84702; 84703; 85025; 86901; 99284

== ENCOUNTER 2017-03-05 21:33 | Emergency (ER) | payer BC ==
[~2017-03-05] VITALS: Ht 157.5 cm; Wt 60.0 kg
[2017-03-05 21:35] VITALS: BP 133/66; PULSE 67; RESP 16; TEMP 99.2; O2SAT 100
[2017-03-06] MEDS ORDERED: cefTRIAXone 250 MG VIAL IM ONE (00:30)
[2017-03-06] MEDS ORDERED: AZITHROMYCIN PWD FOR SUSP 1 GM PACKET PO ONE (00:30)
[2017-03-06] MEDS ORDERED: LIDOCAINE HCL 1% 50 ML VIAL IM ONE (00:30)
[2017-03-06] MEDS ORDERED: AMOX875T PO (00:37)
--- NOTE | 2017-03-06 00:38 | PD ---
HPI Chief Complaint: Abdominal Pain Time Seen by Provider: 23:31 Travel History International Travel<30 days: No Contact w/Intl Traveler<30days: No Traveled to known affect area: No History of Present Illness HPI 22-year-old female who believes she is approximately 7-8 weeks , here for evaluation of vaginal discharge and sore throat. Patient reports that she has had some vaginal discharge which does not seem normal, is whitish/yellowish , for the last week. She occasionally has some abdominal cramping with this. For last couple of days she has been having a sore throat, stating that it is difficult for him to swallow because of pain. She is able to swallow and tolerate her secretions. No fevers or chills. She was seen in the emergency department about 2 weeks ago and had an indeterminant pelvic ultrasound. She has not yet followed up with an [employer] physician, stating that she just obtained her Medicaid and will be following up with one when she returned to [place] in 2 weeks. [facility] Past Medical History Medical History: Denies Significant Hx Diminished Hearing: No Immunizations Current: Yes Tetanus Vaccination: < 5 Years ?: LMP: 7 weeks , 01/15/2017 Ovarian Cysts: Yes Past Surgical History Surgical History: No Previous Surgery Social History Alcohol Use: No (denies) Tobacco Use: No (denies) Substance Use: No Allergies-Medications (Allergen,Severity, Reaction): Coded Allergies: No Known Allergies (Unverified , 01/21/17) Reported Meds & Prescriptions Reported Meds & Active Scripts Active No Active Prescriptions or Reported Medications Review of Systems Except as stated in HPI: all other systems reviewed are Neg Physical Exam Narrative GENERAL: Well-developed, well-nourished, comfortable, no apparent distress. SKIN: Focused skin assessment warm/dry. No rash. HEAD: Atraumatic. Normocephalic. EYES: Pupils equal and round. No scleral icterus. No injection or drainage. ENT: No nasal bleeding or discharge. Mucous membranes pink and moist. Pharynx is erythematous without exudates. Uvula is midline. Normal phonation. No drooling or stridor. No trismus. NECK: Trachea midline. No JVD. CARDIOVASCULAR: Regular rate and rhythm. RESPIRATORY: No accessory muscle use. Clear to auscultation. Breath sounds equal bilaterally. GASTROINTESTINAL: Abdomen soft, non-tender, nondistended. 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 Normal external genitalia. Moderate amount of mucopurulent vaginal discharge. Cervical os is closed. No vaginal bleeding. MUSCULOSKELETAL: No obvious deformities. No clubbing. No cyanosis. No edema. NEUROLOGICAL: Awake and alert. No obvious cranial nerve deficits. Motor grossly within normal limits. Normal speech. PSYCHIATRIC: Appropriate mood and affect; insight and judgment normal. Data Data Last Documented VS Vital Signs Date Time Temp Pulse Resp B/P (MAP) Pulse Ox O2 Delivery O2 Flow Rate FiO2 03/05/17 21:35 99.2 67 16 133/66 (88) 100 Room Air Orders Orders Gc And Chlamydia Pcr (03/05/17 23:41) Wet Prep Profile (03/05/17 23:41) Azithromycin Powd Pack (Zithromax Powd P (03/06/17 00:30) Ceftriaxone Inj (Rocephin Inj) (03/06/17 00:30) Lidocaine 1% Inj (50 Ml) (Xylocaine 1% I (03/06/17 00:30) Labs Laboratory Tests Test 03/05/17 23:55 Clue Cells (Wet Prep) NONE SEEN Vaginal Trichomonas (Wet Prep) NONE SEEN Vaginal Yeast (Wet Prep) NONE SEEN MDM Medical Decision Making Medical Screen Exam Complete: Yes Emergency Medical Condition: Yes Differential Diagnosis PID, pharyngitis, strep pharyngitis, viral illness, UTI, acute intra-abdominal/ surgical process unlikely. Narrative Course Vital signs are within normal limits. Wet prep is negative for yeast, negative for clue cells, negative for Trichomonas. Bedside transabdominal ultrasound performed by [place] shows an IUP with a normal- appearing heart rate. The patient was empirically treated for gonorrhea and chlamydia with IM Rocephin and oral azithromycin. She will also be started on Augmentin for pharyngitis. She was advised to follow-up with an windows deployment technician this week. She was informed on when to return to the emergency department. She verbalizes understanding and agreement with plan. Diagnosis Primary Impression: Qualified Codes: Z34.90 - Encounter for supervision of normal , unspecified, unspecified trimester Additional Impressions: Vaginal discharge during Qualified Codes: O26.891 - Other specified related conditions, first trimester; N89.8 - Other specified noninflammatory disorders of vagina Pharyngitis Qualified Codes: J02.9 - Acute pharyngitis, unspecified Referrals: Pharmacy Services Representative 1 week Additional Instructions: Follow-up with an [employer] physician this week. Follow-up with a primary care physician this week. Stay hydrated with plenty of fluids. Return to the emergency department for worsening symptoms or any other concerns. Scripts Amoxicillin (Amoxicillin) 875 Mg Tab 875 MG PO BID for Infection for 7 Days, #14 TAB 0 Refills Prov: Anoop Loera MD 03/06/17 Disposition: 01 DISCHARGE HOME Condition: Stable Anoop Loera MD Mar 06, 2017 00:38
[2017-03-06 01:41] LABS: CHLAMYDIA PCR NOT DETECTED (NOT DETECT); NEISSERIA PCR NOT DETECTED (NOT DETECT)
== END 2017-03-06 00:52 | disposition home or self-care (01) ==
LOC: NEPD 21:33
DX: O99.511 Diseases of the respiratory system complicating pregnancy, first trimester (principal); J02.9 Acute pharyngitis, unspecified; O26.891 Other specified pregnancy related conditions, first trimester; N89.8 Other specified noninflammatory disorders of vagina; Z3A.08 8 weeks gestation of pregnancy
CPT/HCPCS: 87210; 87491; 87591; 96372; 99284; J0696